=== PATIENT | male | born 1985 | race Caucasian/White ===

== ENCOUNTER 2017-08-23 12:57 | Outpatient (CLI) | payer BC ==
--- NOTE | 2017-08-23 17:18 | MRI ---
LUMBAR SPINE MRI WITHOUT CONTRAST: History: Lumbar radiculopathy. Pain radiates down the leg. Right leg numbness. Right testicular pain . Comparison: None. Technique: Lumbar spine MRI is performed without intravenous gadolinium administration. Multisequent ial, multiplanar imaging is performed. FINDINGS: There is diffuse T1 marrow signal hypointensity of the visualized lumbar spine. Correlate for anemia or marrow infiltrative process. There are bilateral pars defects at L5. There is endplate edema stew ng the inferior endplate of L4, superior endplate of L5 suggesting type I Modic change. Additional e ndplate edema is noted along the inferior plate of L5 and superior endplate of S1, also due to type I Modic change. There is appropriate signal intensity of the visualized psoas muscles. There are T2 hyperintensities in the visualized left and right renal cortex suggesting bilateral cortical cysts. Conus medullaris terminates at the inferior endplate of T12. 5.3 mm of retrolisthesis of L4 upon L5 and 1 cm retrolisthesis of L5 upon S1. T11-12, T12-L1: No high grade central canal stenosis or high grade neural foraminal narrowing. L1-2: Adequate disc hydration. No significant central canal stenosis or foraminal narrowing. L2-3: Adequate disc hydration. No significant central canal stenosis or foraminal narrowing. L3-4: Adequate disc hydration. No significant central canal stenosis or foraminal narrowing. L4-5: Disc desiccation with mild loss of disc space height. There is generalized disc bulge with a r ight subarticular inferior disc extrusion. The sagittal images do raise the possibility of a small e xtruded disc fragment measuring 0.6 cm. This extruded disc fragment is superimposed on the inferior disc extrusion. There is mass effect and significant posterior displacement of the traversing right L5 nerve root. Left subarticular zone is unremarkable. Overall there is mild central canal stenosis. Moderate right and left foraminal narrowing. L5-S1: Disc desiccation with mild loss of disc space height. No significant posterior disc abnormali ty. No significant central canal stenosis. Severe bilateral foraminal narrowing. IMPRESSION: 1. Degenerative disc disease at L4-5. There is a right subarticular inferior disc extrusion with a s uperimposed extruded fragment. There is mass effect and displacement along with partial obscuration traversing the right L5 nerve root. 2. Bilateral foraminal narrowing at L4-5 and L5-S1 as detailed above. 3. Diffuse T1 marrow hypointensity, as above. POS: [facility]
--- OUTSIDE RECORDS SUMMARY | 2017-08-25 20:34 | XMS | Clinical Summary ---
:1985 Author Organization [facility] [employer] Address [address] [place] [address] Phone Care Team Providers Name Role Phone , Primary Care Provider Unavailable Allergies Not on File Current Medications Not on file Active Problems Not on file Social History Tobacco Use Types Packs/Day Years Used Date Never Assessed Sex Assigned at Date Recorded Not on file Last Filed Vital Signs Not on file Plan of Treatment Not on file Results Not on filefrom Last 3 Months
== END 2017-08-23 12:58 | disposition home or self-care (01) ==
LOC: TBSIIMAG 12:57
PROVIDERS: ATTEND Family Medicine
DX: M51.16 Intervertebral disc disorders with radiculopathy, lumbar region (principal); M48.07 Spinal stenosis, lumbosacral region
CPT/HCPCS: 72148

== ENCOUNTER 2017-12-02 05:54 | Inpatient (IN) | payer BC ==
[2017-12-01 11:11] VITALS: BMI 32.1
[2017-12-02] MEDS ORDERED: Thrombin 5000 UNITS/5 ML VIAL ONE ×2 (06:25→11:20)
[2017-12-02] MEDS ORDERED: Sodium Chloride 0.9% 10 ML ONE (06:25)
[2017-12-02] MEDS ORDERED: Bacitracin Zinc Ointment 30 gm TUBE ONE (06:25)
[2017-12-02] MEDS ORDERED: CEFAZOLIN/Water 2 GM/20 ML SYRINGE ONE (06:39)
[2017-12-02 06:51] LABS: #Basophils 0.1 thou/uL (0.0-0.2); #Eosinphils 0.1 thou/uL (0.0-0.7); #Lymphocytes 1.8 thou/uL (1.20-3.40); #Monocytes 0.5 thou/uL (0.11-0.59); #Neutrophils 1.8 thou/uL (1.40-6.50); %Basophils 1.8 % (0.0-1.0); %Eosinophils 3.3 % (0.0-10.0); %Monocytes 12.2 % (0.0-10.0); %Neutrophils 41.6 % (42.0-75.0); Hemoglobin 13.2 g/dL (14.0-18.0); Mean Corpuscular Hemoglobin 32.7 pg (27.0-31.0); Mean Corpuscular Volume 96.3 fl (80.0-94.0); Mean Platelet Volume 6.2 fL (7.4-10.4); Platelet Count 310 thou/uL (130-400); Red Blood Cell (RBC) Count 4.05 mill/uL (4.70-6.10); White Blood Cell (WBC) Count 4.3 thou/uL (4.8-10.8)
[2017-12-02 06:59] LABS: INR-International Normal Ratio 0.9; PTT 26.6 SEC (22.9-36.1); Prothrombin Time 12.1 SEC (12.0-14.7)
[2017-12-02] MEDS ORDERED: Phenylephrine 10 MG/NS 250 ML 250 ML ONE (07:07)
[2017-12-02] MEDS ORDERED: Famotidine/PF 20 mg/2ml Vial ONE (07:07)
[2017-12-02] MEDS ORDERED: Albumin 5% 500 ML ONE (07:07)
[2017-12-02 07:15] LABS: Anion Gap 16 mmol/L (10-20); BUN (Urea Nitrogen) 20 mg/dL (8.9-20.6); Calc. Creatinine Clearance 174 mL/min (70-130); Calcium 9.3 mg/dL (7.8-10.44); Carbon Dioxide 27 mmol/L (22-29); Chloride 101 mmol/L (98-107); Estimated GFR-MDRD Greater than 90; Glucose 91 mg/dL (70-105); Potassium 4.5 mmol/L (3.5-5.1); Sodium 139 mmol/L (136-145)
[2017-12-02] MEDS ORDERED: Fentanyl 250 MCG/5 ML VIAL ONE ×4 (07:25→11:10)
[2017-12-02] MEDS ORDERED: Rocuronium Bromide 50 MG/5 ML VIAL ONE ×3 (08:48→11:08)
[2017-12-02] MEDS ORDERED: Promethazine HCl 25 MG/ML VIAL SLOW IVP PRN (12:19)
[2017-12-02] MEDS ORDERED: Ondansetron HCl/PF 4 MG/2 ML Vial IVP PRN ×2 (12:19→12:36)
[2017-12-02] MEDS ORDERED: Morphine Sulfate 2 MG/ML SYRINGE SLOW IVP PRN (12:19)
[2017-12-02] MEDS ORDERED: HYDROmorphone 2 MG/ML VIAL SLOW IVP PRN (12:19)
[2017-12-02] MEDS ORDERED: Meperidine HCl/PF 25 MG/ML VIAL SLOW IVP PRN (12:19)
[2017-12-02] MEDS ORDERED: Promethazine HCl 25 MG/ML VIAL IM PRN ×2 (12:19→12:36)
[2017-12-02] MEDS ORDERED: Milk Of Magnesia 30 ML UDCUP PO PRN (12:36)
[2017-12-02] MEDS ORDERED: Acetaminophen 325 MG TAB PO PRN (12:36)
[2017-12-02] MEDS ORDERED: Fleet Enema 133 ML BOT PR PRN (12:36)
[2017-12-02] MEDS ORDERED: Bisacodyl 10 MG SUPP PR PRN (12:36)
[2017-12-02] MEDS ORDERED: Mag-Al 1200 mg/1200 mg/30 ML UDCUP PO PRN (12:36)
[2017-12-02] MEDS ORDERED: Acetaminophen/Codeine 30-300mg Tablet PO PRN (12:36)
[2017-12-02] MEDS ORDERED: Midazolam HCl 2 mg/2 ml Vial ONE (12:56)
[2017-12-02] MEDS ORDERED: Fentanyl 100 MCG/2 ML VIAL ONE ×2 (13:25→13:50)
[2017-12-02] MEDS ORDERED: CEFAZOLIN/Water 2 GM/20 ML SYRINGE SLOW IVP SCH (14:00)
[2017-12-02] MEDS ORDERED: HYDROmorphone 0.5 MG/0.5 ML SYRINGE ONE ×2 (14:08→14:31)
[2017-12-02] MEDS ORDERED: Metoclopramide HCl 10 MG/2 ML VIAL ONE (14:26)
[2017-12-02] MEDS ORDERED: Lidocaine 1% PF 5 ML VIAL ONE (14:26)
[2017-12-02] MEDS ORDERED: PROPOFOL 200 MG/20 ML VIAL ONE (14:26)
[2017-12-02] MEDS ORDERED: Dexamethasone 20 MG/5 ML VIAL ONE (14:26)
[2017-12-02] MEDS ORDERED: Ondansetron HCl/PF 4 MG/2 ML Vial ONE (14:26)
[2017-12-02] MEDS ORDERED: Glycopyrrolate 0.2 MG/ML 5 ML SYRINGE ONE (14:26)
[2017-12-02] MEDS: HYDROcodone/Acetaminophen 10/325 mg Tablet PO PRN ×2 (17:20→21:27)
[2017-12-02] MEDS: tiZANidine HCl 4 MG TAB PO PRN ×2 (17:20→23:16)
[2017-12-02] MEDS: Pregabalin 75 MG CAP PO SCH (19:42)
[2017-12-02] MEDS: CEFAZOLIN/Water 2 GM/20 ML SYRINGE SLOW IVP SCH (19:43)
[2017-12-02] MEDS: Sodium Chloride 0.9% 1,000 ML IV SCH (19:45)
[2017-12-02] MEDS ORDERED: AMPHETAMINE PO SCH (21:00)
[2017-12-02] MEDS ORDERED: DEXTROAMPHETAMINE PO SCH (21:00)
[2017-12-02] MEDS: traMADol HCl 50 MG TAB PO PRN (23:16)
[2017-12-03] MEDS: HYDROcodone/Acetaminophen 10/325 mg Tablet PO PRN ×3 (01:44→10:40)
[2017-12-03] MEDS: Sodium Chloride 0.9% 1,000 ML IV SCH (02:47)
[2017-12-03] MEDS: CEFAZOLIN/Water 2 GM/20 ML SYRINGE SLOW IVP SCH ×2 (03:08→08:54)
[2017-12-03] MEDS: tiZANidine HCl 4 MG TAB PO PRN (07:00)
[2017-12-03 08:47] VITALS: BP 121/78; TEMP 97.9
[2017-12-03] MEDS: traMADol HCl 50 MG TAB PO PRN (08:52)
[2017-12-03] MEDS: Pregabalin 75 MG CAP PO SCH (08:52)
--- NOTE | 2017-12-06 13:32 | OP ---
DATE OF SURGERY: 12/02/2017 SURGEON: Mark To M.D. 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 PROCEDURES PERFORMED: 1. Right L4-L5 hemilaminotomy, foraminotomy, and diskectomy. 2. L5-S1 laminectomy and facetectomy for decompression of the L5 and S1 nerve roots bilaterally. 3. L5-S1 screw kalyani fixation for lumbosacral fusion. 4. Arthrodesis with local bone autograft obtained from the same incision and BMP, bilateral posterol ateral regions L5-S1 for spondylolisthesis. 5. Use of operative microscope for microdissection. DESCRIPTION OF PROCEDURE: After informed consent was obtained from the patient, the patient brought to the OR. Proper patient pause and identification was carried out. He was placed under excellent g eneral endotracheal anesthesia and positioned prone on the operating room table and all appropriate p oints were padded. We identified the L4, L5, and S1 dorsal spines and lamina. A linear tobin was mad e over this region. This area was sterilely cleansed, prepared, and draped. Proper patient pause an d identification was carried out. The wound was then opened with a combination of sharp, monopolar a nd blunt dissection and the right L4-L5 and L5-S1 segments were all exposed. The bilateral L5 and bi lateral S1 segments were exposed. We identified the pars defects bilaterally at L5. We then perform ed localization film to confirm our area of interest. A right L4-L5 hemilaminotomy and foraminotomy was then performed and the microscope brought in for microdissection. Diskectomy in the right L4-L5 segment was performed resulting in excellent decompression of the right L4 and right L5 nerve roots. We then turned our attention to removal of the microscope and L5-S1 laminectomy decompression bilate rally of the common dural tube and the L5 and S1 nerve roots bilaterally was performed. There was no spinal fluid leak. We then turned our attention to placement of screw kalyani fixation at L5 and S1 evie aterally given the patient's spondylolysis and spondylolisthesis at L5 and S1. Screws and rods were placed. Rods were final tightened with cap screws. We were satisfied with both gross and fluoroscop ic and CT placement of our hardware. Copious irrigation occurred throughout. The dura was then cove red with a small amount of DuraSeal to protect the dura, although there was no spinal fluid leak. Th is was to minimize radiculitis related to the fusion process. We then decorticated along the postero lateral regions and laid autograft and BMP for arthrodesis. Copious irrigation occurred throughout a nd hemostasis was also maximized throughout. The wound was then closed in anatomic layers following the sprinkling of vancomycin powder. The patient then emerged from anesthesia.
--- NOTE | 2018-01-31 21:44 | EKG ---
Test Reason : PREOP Blood Pressure : / mmHG Vent. Rate : 078 BPM Atrial Rate : 078 BPM P-R Int : 162 ms QRS Dur : 096 ms QT Int : 382 ms P-R-T Axes : 031 063 035 degrees QTc Int : 435 ms Normal sinus rhythm Normal ECG No previous ECGs available Confirmed by KAREN PINTO M.D. ([id number] on 01/31/2018 9:43:43 PM Referred By: [email or web address] Confirmed By:KAREN PINTO M.D.
== END 2017-12-03 12:49 | disposition home or self-care (01) | DRG 460 ==
LOC: SDC 05:54 → SJJU 12:36
PROVIDERS: ADMIT Surgery; ATTEND Surgery
PROC: 0ST20ZZ Resection of Lumbar Vertebral Disc, Open Approach (ICD-10-PCS; principal; 2017-12-02)
PROC: 0SG30AJ Fusion of Lumbosacral Joint with Interbody Fusion Device, Posterior Approach, Anterior Column, Open Approach (ICD-10-PCS; 2017-12-02)
PROC: 01NB0ZZ Release Lumbar Nerve, Open Approach (ICD-10-PCS; 2017-12-02)
DX: M47.26 Other spondylosis with radiculopathy, lumbar region (principal); F90.9 Attention-deficit hyperactivity disorder, unspecified type; M43.16 Spondylolisthesis, lumbar region; M51.26 Other intervertebral disc displacement, lumbar region; M51.16 Intervertebral disc disorders with radiculopathy, lumbar region
CPT/HCPCS: 76001; 80048; 85025; 85610; 85730; 93005; 93010; A4216; C1713; G8978-GP-CL; G8979-GP-CJ; J0131; J1100; J1170; J2001; J2250; J2270; J2405; J2704; J2765; J3010; J3370; J3490; P9045; S0028

== ENCOUNTER 2018-01-17 16:09 | Outpatient (CLI) | payer BC ==
--- NOTE | 2018-01-17 16:52 | RAD ---
TWO VIEWS LUMBOSACRAL SPINE: Comparison: MRI lumbar spine, 08-23-17 History: Surgery in December. Low back pain with lumbar radiculopathy. FINDINGS: Two views of the lumbosacral spine shows the patient to be status post posterior fusion of L5-S1 with bilateral pedicle screws. There is grade I anterolisthesis of L5 on S1. No degenerative changes are seen in the upper lumbar spine. IMPRESSION: 1. Post-surgical changes of the lumbar spine without evidence of complication. 2. Stable spondylolisthesis of L5 on S1. POS: [facility]
== END 2018-01-17 16:10 | disposition home or self-care (01) ==
LOC: TBSIIMAG 16:09
PROVIDERS: ATTEND Surgery
DX: M54.16 Radiculopathy, lumbar region (principal); M43.16 Spondylolisthesis, lumbar region; Z98.1 Arthrodesis status
CPT/HCPCS: 72100